=== PATIENT | male | born 1995 | race African-American/Black ===

== ENCOUNTER 2019-09-16 19:38 | Emergency (ER) | payer SELFPAY ==
[~2019-09-16] VITALS: Ht 172.7 cm; Wt 77.0 kg
[2019-09-16 20:03] VITALS: BP 118/74
[2019-09-16 20:44] LABS: CLARITY URINE CLEAR (CLEAR); COLOR URINE YELLOW (YELLOW); KETONES URINE NEGATIVE (NEGATIVE); LEUKOCYTE ESTERASE URINE 2+ (NEGATIVE); NITRITE URINE NEGATIVE (NEGATIVE); OCCULT BLOOD URINE TRACE (NEGATIVE); PH URINE 6.5 (4.5-8.0); PROTEIN URINE TRACE (NEGATIVE); SPECIFIC GRAVITY URINE 1.032 (1.005-1.030)
[2019-09-16] MEDS ORDERED: AZITHROMYCIN 500 MG TABLET PO ONE (21:00)
[2019-09-16] MEDS ORDERED: CEFTRIAXONE SODIUM 250 MG/VIAL IM ONE (21:00)
[2019-09-16] MEDS ORDERED: LIDOCAINE HCL 1% 20ML VIAL (Pyxis) INJ INFIL ONE (21:00)
== END 2019-09-16 21:40 | disposition home or self-care (01) ==
LOC: ER 19:38
DX: N39.0 Urinary tract infection, site not specified (principal)
CPT/HCPCS: 81003; 96372; 99283; J0696; J3490